=== PATIENT | female | born 1955 | race Caucasian/White ===

== ENCOUNTER 2017-12-16 17:31 | Emergency (ER) | payer OTHER ==
[~2017-12-16] VITALS: Ht 175.3 cm; Wt 88.0 kg
[~2017-12-16 17:31] MED LIST: BENADRYL25 MG PO; CEPHALEXIN 500500 M3 PO; CHLORTHALIDONE; CHLORTHALIDONE25 MG PO; FISH OIL 1,001000 MG PO; IBUPROFEN 800800 M1 PO; LOTREL 2.5-101 EACH PO; NASONEX17 GM NASAL; NORCO 5-325 TA1 EACH PO; PREVACID15 MG PO; RESTASIS1 EACH OPHTHALMIC; TYLENOL325 MG PO; VITAMIN D31000 UNI2 PO; XARELTO20 MG PO; ZOCOR; ZOCOR 20 MG TAB20 M1 PO
[2017-12-16] MEDS ORDERED: LIPITOR10 MG PO (17:41)
[2017-12-16] MEDS ORDERED: PRESERVISION A1 EAC2 PO (17:41)
[2017-12-16] MEDS ORDERED: FLONASE 0.05%50 MCG NASAL (17:41)
[2017-12-16] MEDS ORDERED: CENTRUM SILVER1 EAC4 PO (17:42)
[2017-12-16] MEDS ORDERED: ASPIR 8181 MG PO (17:42)
[2017-12-16 18:07] LABS: HEMATOCRIT 41.7 % (37.0-47.0); HEMOGLOBIN 13.8 gm/dL (12.0-15.0); MCH 28.3 pg (26.0-34.0); MCHC 33.1 g/dL (28.0-37.0); MCV 85.5 fL (80.0-100.0); NUCLEATED RBCS 0 /100WBC; PLATELET COUNT* 186 thou/uL (150-400); RBC 4.88 mil/uL (4.20-5.00); RDW-CV 14.1 % (10.5-14.5); WBC 13.5 thou/uL (4.0-11.0)
[2017-12-16 18:16] LABS: ANION GAP 12 mmol/L (7-16); BUN 22 mg/dL (7-18); CALCIUM 8.9 mg/dL (8.5-10.1); CHLORIDE 103 mmol/L (98-107); CO2 22 mmol/L (21-32); CREATININE 0.9 mg/dL (0.6-1.3); GLUCOSE 117 mg/dL (70-99); POTASSIUM 3.4 mmol/L (3.5-5.1); SODIUM 137 mmol/L (136-145)
[2017-12-16 18:19] LABS: INFLUENZA A ANTIGEN None Detected (None Detect); INFLUENZA B ANTIGEN None Detected (None Detect)
[2017-12-16 18:20] LABS: APTT 28.2 Seconds (25.0-31.3); PROTIME 10.5 Seconds (9.20-11.50)
[2017-12-16 18:23] LABS: ALBUMIN 3.6 g/dL (3.4-5.0); ALKALINE PHOSPHATASE 134 U/L (46-116); SGOT 21 U/L (15-37); SGPT 27 U/L (30-65); TOTAL BILIRUBIN 0.5 mg/dL (<0.1-1.0); TOTAL PROTEIN 7.4 g/dL (6.4-8.2); TROPONIN-I LEVEL <0.06 ng/mL (<0.06)
[2017-12-16 18:38] LABS: ABSOLUTE LYMPHOCYTES 0.7 thou/uL (0.8-5.3); ABSOLUTE MONOCYTES 1.1 thou/uL (0.0-1.2); ABSOLUTE NEUTROPHILS 11.7 thou/uL (1.6-8.1)
[2017-12-16 18:39] LABS: PLATELET ESTIMATE ADEQUATE
[2017-12-16] MEDS ORDERED: PROAIR HFA8.5 GM INH (20:43)
[2017-12-16] MEDS ORDERED: AZITHROMYCIN250 MG PO (20:43)
[2017-12-16 21:52] VITALS: BP 109/53
--- NOTE | 2017-12-18 10:13 | EKG ---
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: Nubia DYSON : 1955 Requested By: Brittney Garcia Order Number: [id number] MD: Parish Romeo Measurements Intervals [place] Rate: 144 P: 0 PA: QRS: -27 QRSD: 148 T: 114 QT: 349 QTc: 540 Interpretive Statements Sinus tachycardia Left bundle branch block Compared to ECG 04/03/2013 19:43:43 Sinus rhythm no longer present Electronically Signed On 12-18-2017 10:13:14 RESPIRATORY ASSISTANT by Parish Roemo [email or web address] <ELECTRONICALLY SIGNED> By: Parish Romeo MD, [facility] 12/18/17 1013 1749 174 Parish Romeo MD, FAC /EPI
== END 2017-12-16 21:55 | disposition home or self-care (01) ==
LOC: M.ERS 17:31
PROVIDERS: Nurse Practitioner Family
DX: J18.9 Pneumonia, unspecified organism (principal); I10 Essential (primary) hypertension; G43.909 Migraine, unspecified, not intractable, without status migrainosus; E78.00 Pure hypercholesterolemia, unspecified; Z86.718 Personal history of other venous thrombosis and embolism; Z90.13 Acquired absence of bilateral breasts and nipples; Z88.0 Allergy status to penicillin; Z88.2 Allergy status to sulfonamides; Z88.5 Allergy status to narcotic agent

== ENCOUNTER 2017-12-22 17:33 | Emergency (ER) | payer OTHER ==
[~2017-12-22] VITALS: Ht 175.3 cm; Wt 90.7 kg
[~2017-12-22 17:33] MED LIST changes: +ASPIR 8181 MG PO; +AZITHROMYCIN250 MG PO; +CENTRUM SILVER1 EAC4 PO; +FLONASE 0.05%50 MCG NASAL; +LIPITOR10 MG PO; +PRESERVISION A1 EAC2 PO; +PROAIR HFA8.5 GM INH
[2017-12-22] MEDS ORDERED: SYMBICORT160 MCG/4. INH (17:45)
[2017-12-22 19:07] VITALS: BP 141/74
--- NOTE | 2017-12-23 12:24 | EKG ---
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: Nubia DYSON : 1955 Requested By: Bre Plascencia Order Number: [id number] MD: Richie Engel Measurements Intervals [place] Rate: 74 P: 34 PA: 169 QRS: -27 QRSD: 155 T: 84 QT: 454 QTc: 504 Interpretive Statements Sinus rhythm Left bundle branch block Compared to ECG 12/16/2017 17:49:20 Sinus tachycardia no longer present Electronically Signed On 12-23-2017 12:24:26 CREDIT PROCESSOR by Richie Engel [email or web address] <ELECTRONICALLY SIGNED> By: Richie Engel MD, [facility] 12/23/17 1224 31 31 Richie Engel MD, FACC /EPI
== END 2017-12-22 19:07 | disposition home or self-care (01) ==
LOC: M.ERS 17:33
DX: M94.0 Chondrocostal junction syndrome [Tietze] (principal); M25.512 Pain in left shoulder; G43.909 Migraine, unspecified, not intractable, without status migrainosus; E78.00 Pure hypercholesterolemia, unspecified; Z88.5 Allergy status to narcotic agent; Z88.0 Allergy status to penicillin; Z88.2 Allergy status to sulfonamides; Z85.3 Personal history of malignant neoplasm of breast; Z90.710 Acquired absence of both cervix and uterus; Z86.711 Personal history of pulmonary embolism

== ENCOUNTER 2017-12-28 06:11 | Emergency (ER) | payer OTHER ==
[~2017-12-28] VITALS: Ht 175.3 cm; Wt 87.5 kg
[~2017-12-28 06:11] MED LIST changes: +SYMBICORT160 MCG/4. INH
[2017-12-28 06:31] LABS: ABSOLUTE BASOPHILS 0.1 thou/uL (0.0-0.2); ABSOLUTE EOSINOPHILS 0.2 thou/uL (0.0-0.7); ABSOLUTE LYMPHOCYTES 2.3 thou/uL (0.8-5.3); ABSOLUTE MONOCYTES 0.8 thou/uL (0.0-1.2); ABSOLUTE NEUTROPHILS 11.8 thou/uL (1.6-8.1); BASOPHILS 0.6 %; EOSINOPHILS 1.3 %; HEMATOCRIT 39.1 % (37.0-47.0); HEMOGLOBIN 12.7 gm/dL (12.0-15.0); LYMPHOCYTES 15.3 %; MCH 27.9 pg (26.0-34.0); MCHC 32.4 g/dL (28.0-37.0); MCV 86.2 fL (80.0-100.0); MONOCYTES 5.3 %; NUCLEATED RBCS 0 /100WBC; PLATELET COUNT* 342 thou/uL (150-400); POLYS 77.5 %; RBC 4.53 mil/uL (4.20-5.00); RDW-CV 14.5 % (10.5-14.5); WBC 15.2 thou/uL (4.0-11.0)
[2017-12-28 06:39] LABS: PROTIME 10.2 Seconds (9.20-11.50)
[2017-12-28 06:44] LABS: ANION GAP 9 mmol/L (7-16); BUN 26 mg/dL (7-18); CHLORIDE 104 mmol/L (98-107); CO2 26 mmol/L (21-32); CREATININE 0.9 mg/dL (0.6-1.3); GLUCOSE 95 mg/dL (70-99); POTASSIUM 3.7 mmol/L (3.5-5.1); SODIUM 139 mmol/L (136-145)
[2017-12-28 06:53] LABS: ALBUMIN 3.5 g/dL (3.4-5.0); ALKALINE PHOSPHATASE 119 U/L (46-116); LIPASE 153 U/L (73-393); NT-PRO BRAIN NAT PEPTIDE 35 pg/mL (<300); SGOT 16 U/L (15-37); SGPT 27 U/L (30-65); TOTAL BILIRUBIN 0.5 mg/dL (<0.1-1.0); TOTAL PROTEIN 7.2 g/dL (6.4-8.2); TROPONIN-I LEVEL <0.06 ng/mL (<0.06)
[2017-12-28] MEDS ORDERED: LEVAQUIN 750 M750 MG PO (07:06)
[2017-12-28 07:21] VITALS: BP 114/74
[2017-12-28] MEDS ORDERED: LEVAQUIN 500 M500 MG PO (07:25)
--- NOTE | 2017-12-28 14:29 | EKG ---
[place] [address] ELECTROCARDIOGRAM REPORT Name: SHRAVANJASON C Room: [facility]#: [id number] Admission: 12/28/17 Attend Phys: Discharge: 12/28/17 Date of : 51 Report #: [id number] THIS REPORT FOR: //name// [facility] ED Test Date: 2017-12-28 Test Time: 06:17:59 Pat Name: JASON CHENEY Department: Room: Gender: F Test And Balance Engineer: JESSICA : 1955 Requested By: Elis Elliott Order Number: [id number] MD: Richie Engel Measurements Intervals [place] Rate: 88 P: 67 ID: 187 QRS: -21 QRSD: 158 T: 101 QT: 445 QTc: 539 Interpretive Statements Sinus rhythm Probable left atrial enlargement Left bundle branch block Compared to ECG 12/22/2017 18:32:55 No significant changes Electronically Signed On 12-28-2017 14:29:29 INFORMATION TECH by Richie Engel [email or web address] <ELECTRONICALLY SIGNED> By: Richie Engel MD, [facility] 12/28/17 1429 6 6 Richie Engel MD, FAC /EPI
== END 2017-12-28 07:21 | disposition home or self-care (01) ==
LOC: M.ERS 06:11
PROVIDERS: Emergency Medicine
DX: J90 Pleural effusion, not elsewhere classified (principal); G43.909 Migraine, unspecified, not intractable, without status migrainosus; I10 Essential (primary) hypertension; E78.00 Pure hypercholesterolemia, unspecified; Z88.0 Allergy status to penicillin; Z88.2 Allergy status to sulfonamides; Z88.5 Allergy status to narcotic agent; Z88.8 Allergy status to other drugs, medicaments and biological substances; Z90.710 Acquired absence of both cervix and uterus

== ENCOUNTER 2018-01-24 05:10 | Emergency (ER) | payer OTHER ==
[~2018-01-24] VITALS: Ht 177.8 cm; Wt 88.5 kg
[~2018-01-24 05:10] MED LIST changes: +LEVAQUIN 500 M500 MG PO; +LEVAQUIN 750 M750 MG PO
[2018-01-24 05:52] LABS: ABSOLUTE EOSINOPHILS 0.5 thou/uL (0.0-0.7); ABSOLUTE LYMPHOCYTES 2.4 thou/uL (0.8-5.3); ABSOLUTE MONOCYTES 0.6 thou/uL (0.0-1.2); ABSOLUTE NEUTROPHILS 1.8 thou/uL (1.6-8.1); BASOPHILS 0.8 %; EOSINOPHILS 8.7 %; HEMATOCRIT 39.4 % (37.0-47.0); MCH 28.6 pg (26.0-34.0); MCHC 33.1 g/dL (28.0-37.0); MCV 86.6 fL (80.0-100.0); MONOCYTES 11.6 %; MPV 8.6 fl. (7.2-11.1); NUCLEATED RBCS 0 /100WBC; PLATELET COUNT* 202 thou/uL (150-400); POLYS 33.9 %; RBC 4.55 mil/uL (4.20-5.00); RDW-CV 14.7 % (10.5-14.5); WBC 5.3 thou/uL (4.0-11.0)
[2018-01-24 06:07] LABS: CREATININE 0.9 mg/dL (0.6-1.3); POTASSIUM 3.7 mmol/L (3.5-5.1)
[2018-01-24 06:09] LABS: APTT 27.5 Seconds (25.0-31.3); PROTIME 10.1 Seconds (9.20-11.50)
[2018-01-24 06:11] LABS: ALBUMIN 3.4 g/dL (3.4-5.0); MAGNESIUM 2.1 mg/dL (1.8-2.4); TOTAL BILIRUBIN 0.3 mg/dL (<0.1-1.0); TOTAL PROTEIN 7.2 g/dL (6.4-8.2)
[2018-01-24 07:09] LABS: URINE BILIRUBIN NEGATIVE (Negative); URINE BLOOD NEGATIVE (Negative); URINE CLARITY CLEAR; URINE COLOR YELLOW; URINE GLUCOSE-RANDOM NEGATIVE (Negative); URINE KETONES NEGATIVE (Negative); URINE LEUKOCYTES-REFLEX NEGATIVE (Negative); URINE NITRITE-REFLEX NEGATIVE (Negative); URINE PROTEIN NEGATIVE (Negative); URINE SPECIFIC GRAVITY 1.025 (1.005-1.030); URINE UROBILINOGEN 0.2 E.U./dl (0.2-1.0)
[2018-01-24 11:10] VITALS: BP 137/68
--- NOTE | 2018-01-25 18:01 | EKG ---
[place] [address] ELECTROCARDIOGRAM REPORT Name: CHENEYJASON C Room: [facility]#: [id number] Admission: 01/24/18 Attend Phys: Discharge: 01/24/18 Date of : 51 Report #: [id number] THIS REPORT FOR: //name// [facility] ED Test Date: 2018-01-24 Test Time: 05:16:39 Pat Name: JASON CHENEY Department: Room: Gender: F Senior Major Gifts Officer: VALERIE : 1955 Requested By: Ashanti Olsen Order Number: [id number] MD: Parish Romeo Measurements Intervals [place] Rate: 74 P: 30 IN: 163 QRS: -30 QRSD: 159 T: 96 QT: 435 QTc: 483 Interpretive Statements Sinus rhythm Probable left atrial enlargement Left bundle branch block Compared to ECG 12/28/2017 06:17:59 No significant changes Electronically Signed On 01-25-2018 18:00:51 [employer]URCH SECRETARY by Parish Romeo [email or web address] <ELECTRONICALLY SIGNED> By: Parish Romeo MD, [facility] 01/25/18 [facility] 5 5 Parish Romeo MD, FACC /EPI
== END 2018-01-24 11:10 | disposition home or self-care (01) ==
LOC: M.ERS 05:10
PROVIDERS: Personal Emergency Response Attendant
DX: R07.89 Other chest pain (principal); E78.00 Pure hypercholesterolemia, unspecified; I10 Essential (primary) hypertension; G43.909 Migraine, unspecified, not intractable, without status migrainosus; Z85.3 Personal history of malignant neoplasm of breast; Z90.710 Acquired absence of both cervix and uterus; Z86.711 Personal history of pulmonary embolism; Z88.0 Allergy status to penicillin; Z88.2 Allergy status to sulfonamides; Z88.5 Allergy status to narcotic agent; Z88.8 Allergy status to other drugs, medicaments and biological substances